=== PATIENT | female | born 1985 | race Caucasian/White ===

== ENCOUNTER 2021-07-31 12:54 | Emergency (ER) | payer OTHER ==
[2021-07-31 13:02] VITALS: BP 115/77; PULSE 95; TEMP 97.4; BMI 21.7
[2021-07-31] MEDS ORDERED: LIDOCAINE 5% TOPICAL PATCH TP ONE (13:57)
[2021-07-31] MEDS ORDERED: DEXAMETHASONE LIQUID 0.5 MG/5 ML PO ONE (13:57)
[2021-07-31] MEDS ORDERED: DEXAMETHASONE SOD PHOSPHATE 10 MG/1 ML VIAL ONE (14:04)
[2021-07-31] MEDS ORDERED: LIDOCAINE PATCH REMOVAL MC SCH (22:00)
== END 2021-07-31 14:17 | disposition home or self-care (01) ==
LOC: JERFT 12:54
DX: M54.50 Low back pain, unspecified (principal)
CPT/HCPCS: 99283-25